=== PATIENT | female | born 1965 | race Caucasian/White ===

== ENCOUNTER 2020-06-06 07:11 | Emergency (ER) | payer BC, OTHER ==
[2020-06-06 07:25] VITALS: BP 109/46; PULSE 76; TEMP 97.5; BMI 24.9
[2020-06-06] MEDS ORDERED: ACETAMINOPHEN 325 MG TABLET (FP) PO ONE (08:33)
[2020-06-06] MEDS ORDERED: ACETAMINOPHEN 325 MG TABLET (FP) ONE (08:41)
== END 2020-06-06 10:50 | disposition home or self-care (01) ==
LOC: JERFT 07:11 → JER 07:11 → JERFT 10:50
PROC: 2W3CX1Z Immobilization of Right Lower Arm using Splint (ICD-10-PCS; principal; 2020-06-06)
DX: S52.501A Unspecified fracture of the lower end of right radius, initial encounter for closed fracture (principal); W01.0XXA Fall on same level from slipping, tripping and stumbling without subsequent striking against object, initial encounter
CPT/HCPCS: 73110-TC-RT-FY; 99283-25